=== PATIENT | female | born 1985 | race African-American/Black ===

== ENCOUNTER 2018-01-18 23:00 | Inpatient (IN) | payer MEDICAID ==
[~2018-01-18] VITALS: Ht 160 cm; Wt 67.7 kg
[~2018-01-18 23:00] MED LIST: ALBUPOW26; CARI250T; VICODIN
[2018-01-18] MEDS ORDERED: LORA-654 PO (23:06)
[2018-01-18] MEDS ORDERED: SODIUM CHLORIDE 0.9% 1,000 ML IVB ONE (23:12)
[2018-01-18] MEDS ORDERED: LORazepam 2MG/ML-1ML VIAL ONE (23:20)
[2018-01-18] MEDS ORDERED: diphenhdrAMINE HCL 50 MG/1 ML VL ONE (23:20)
[2018-01-18] MEDS ORDERED: HALOPERIDOL LACTATE 5 MG/ML INJ VIAL ONE (23:20)
[2018-01-18 23:45] LABS: Eosinophils # (auto) 0 uL; Lymphocytes # (auto) 1.6 uL; Monocytes % (auto) 7.9 % (0.0-12.0); White Blood Cell 12.4 10^3/uL (4.4-10.8)
[2018-01-18 23:46] LABS: Basophils # (auto) 0.1 uL; Basophils % (auto) 0.5 % (0.0-2.0); Eosinophils % (auto) 0.4 % (0.0-7.0); Hematocrit 40.4 % (36.0-46.0); Lymphocytes % (auto) 13.2 % (10.0-50.0); Mean Corpuscular Hemoglobin 25.5 pg (28.0-32.0); Mean Corpuscular Hgb Conc. 32.2 g/dL (32.0-36.0); Mean Corpuscular Volume 79.2 fL (80.0-100.0); Neutrophils # (auto) 9.7 uL; Nucleated Red Blood Cells % 0.1 %; Platelet Count (auto) 223 10^3/uL (140-450); Red Cell Distribution Width 14.7 % (11.8-14.3)
[2018-01-19 00:01] LABS: Partial Thromboplastin Time 21.7 sec (22.64-33.71); Prothrombin Time 10.9 sec (9.37-12.3)
[2018-01-19 00:08] LABS: Alanine Aminotransferase 39 U/L (13-56); Albumin 4.6 g/dL (3.4-5.0); Alkaline Phosphatase 58 U/L (45-117); Anion Gap 15 (5-15); Aspartate Aminotransferase 94 U/L (15-37); BUN/Creatinine Ratio 21.6; Bilirubin, Total 1.6 mg/dL (0.2-1.0); Blood Alcohol < 3.0 mg/dL (0-5); Blood Urea Nitrogen 33 mg/dL (7-18); Calcium 9.5 mg/dL (8.5-10.1); Carbon Dioxide 15 mmol/L (21-32); Chloride 104 mmol/L (98-107); GFR African American 53 mL/min; GFR Non-African American 44 mL/min; Glucose 82 mg/dL (74-106); Magnesium 3.9 mg/dL (1.6-2.6); Potassium 4.4 mmol/L (3.5-5.1); Sodium 134 mmol/L (136-145); Total Protein 8.9 g/dL (6.4-8.2)
[2018-01-19] MEDS ORDERED: HALOPERIDOL LACTATE 5 MG/ML INJ VIAL IM ONE (01:00)
[2018-01-19] MEDS ORDERED: LORazepam 2MG/ML-1ML VIAL IV ONE (01:00)
[2018-01-19] MEDS ORDERED: diphenhdrAMINE HCL 50 MG/1 ML VL IV ONE (01:00)
[2018-01-19 01:08] LABS: Urine Bacteria FEW /hpf (None Seen); Urine Blood 2+ /uL (Negative); Urine Hyaline Cast FEW /lpf (0 - 2); Urine Mucus FEW (None Seen); Urine Specific Gravity 1.025 (1.001-1.035); Urine WBC 2 /hpf (0 - 5)
[2018-01-19 01:19] LABS: Alcohol, Urine < 3.0 mg/dL (0-5); Amphetamine Screen, Urine POSITIVE (NEGATIVE); Barbiturate Scree,Urine NEGATIVE (NEGATIVE); Benzodiazephine Screen, Urine NEGATIVE (NEGATIVE); Cannabinoid Screen, Urine NEGATIVE (NEGATIVE); Cocaine Screen, Urine NEGATIVE (NEGATIVE); Opiate Scree,Urine NEGATIVE (NEGATIVE); Phencyclidine Screen, Urine NEGATIVE (NEGATIVE)
[2018-01-19 07:33] LABS: Albumin 4.4 g/dL (3.4-5.0); Calcium 8.7 mg/dL (8.5-10.1); Potassium 4.1 mmol/L (3.5-5.1)
[2018-01-19 07:36] LABS: BUN/Creatinine Ratio 25.2
[2018-01-19] MEDS ORDERED: ONDANSETRON HCL 4 MG/2 ML VIAL IV PRN (07:45)
[2018-01-19 07:47] LABS: Bilirubin, Total 1.5 mg/dL (0.2-1.0); Total Protein 8.5 g/dL (6.4-8.2)
[2018-01-19 09:12] LABS: Basophils # (auto) 0 uL; Eosinophils # (auto) 0.1 uL; Lymphocytes # (auto) 2.1 uL
[2018-01-19 09:13] LABS: Basophils % (auto) 0.3 % (0.0-2.0); Eosinophils % (auto) 0.6 % (0.0-7.0); Hematocrit 39.9 % (36.0-46.0); Hemoglobin 12.9 g/dL (12.2-16.2); Lymphocytes % (auto) 15.1 % (10.0-50.0); Mean Corpuscular Hemoglobin 25.6 pg (28.0-32.0); Mean Corpuscular Hgb Conc. 32.3 g/dL (32.0-36.0); Monocytes % (auto) 7.4 % (0.0-12.0); Neutrophils # (auto) 10.6 uL; Neutrophils % (auto) 76.6 % (37.0-80.0); Nucleated Red Blood Cells % 0.3 %; Platelet Count (auto) 238 10^3/uL (140-450); Red Blood Cells 5.04 10^6/uL (4.0-5.20); Red Cell Distribution Width 15.1 % (11.8-14.3); White Blood Cell 13.8 10^3/uL (4.4-10.8)
[2018-01-19 10:01] VITALS: BP 103/77
[2018-01-19] MEDS: D5W/SOD CHL 0.45% 1,000 ML IV SCH ×2 (11:18→20:45)
[2018-01-19 11:21] LABS: Basophils # (auto) 0 uL; Eosinophils # (auto) 0.1 uL; Eosinophils % (auto) 0.9 % (0.0-7.0); Hemoglobin 12.5 g/dL (12.2-16.2); Lymphocytes # (auto) 1.3 uL; Mean Corpuscular Volume 77.5 fL (80.0-100.0)
[2018-01-19 11:23] LABS: Basophils % (auto) 0.1 % (0.0-2.0); Hematocrit 37.7 % (36.0-46.0); Lymphocytes % (auto) 12.1 % (10.0-50.0); Mean Corpuscular Hemoglobin 25.6 pg (28.0-32.0); Mean Corpuscular Hgb Conc. 33.1 g/dL (32.0-36.0); Monocytes # (auto) 0.7 uL; Monocytes % (auto) 6.1 % (0.0-12.0); Neutrophils # (auto) 8.8 uL; Neutrophils % (auto) 80.8 % (37.0-80.0); Nucleated Red Blood Cells % 0.1 %; Platelet Count (auto) 238 10^3/uL (140-450); Red Blood Cells 4.87 10^6/uL (4.0-5.20); White Blood Cell 10.8 10^3/uL (4.4-10.8)
[2018-01-19 11:39] LABS: Albumin 4.2 g/dL (3.4-5.0); Bilirubin, Total 1.4 mg/dL (0.2-1.0); Calcium 8.8 mg/dL (8.5-10.1); Potassium 4.1 mmol/L (3.5-5.1); Total Protein 8.5 g/dL (6.4-8.2)
[2018-01-19] MEDS: THIAMINE INJ 100 MG, MULTIPLE VITAMIN 10 ML, FOLIC ACID 1 MG, MAGNESIUM SULF SDV 50% 8 ... IV SCH ×5 (12:03)
[2018-01-19 12:30] VITALS: BP 108/73
[2018-01-19 15:00] VITALS: BP 112/71
[2018-01-19] MEDS: LORazepam 2MG/ML-1ML VIAL IV PRN (17:55)
[2018-01-19 20:00] VITALS: BP 112/64
[2018-01-19] MEDS: ACETAMINOPHEN 500 MG TAB PO PRN (20:19)
[2018-01-20] MEDS: D5W/SOD CHL 0.45% 1,000 ML IV SCH ×2 (03:56→16:45)
[2018-01-20] MEDS: LORazepam 2MG/ML-1ML VIAL IV PRN ×4 (03:56→21:52)
[2018-01-20] MEDS: ACETAMINOPHEN 500 MG TAB PO PRN ×2 (04:23→10:23)
[2018-01-20 09:00] VITALS: BP 86/51
[2018-01-20 10:31] VITALS: BP 89/49
[2018-01-20 13:00] VITALS: BP 93/52
[2018-01-20] MEDS: THIAMINE INJ 100 MG, MULTIPLE VITAMIN 10 ML, FOLIC ACID 1 MG, MAGNESIUM SULF SDV 50% 8 ... IV SCH ×5 (13:46)
[2018-01-20] MEDS: HYDROcodone-ACET 5/325MG TAB PO PRN (14:41)
[2018-01-20 16:45] VITALS: BP 98/67
[2018-01-20 20:00] VITALS: BP 111/72
[2018-01-20 22:00] VITALS: BP 111/77
[2018-01-21] MEDS: D5W/SOD CHL 0.45% 1,000 ML IV SCH (03:11)
[2018-01-21 05:00] VITALS: BP 101/69
[2018-01-21] MEDS: LORazepam 2MG/ML-1ML VIAL IV PRN (05:46)
[2018-01-21 07:46] LABS: Albumin 3.2 g/dL (3.4-5.0); BUN/Creatinine Ratio 23.1; Calcium 8.6 mg/dL (8.5-10.1); Potassium 4.1 mmol/L (3.5-5.1)
[2018-01-21 07:59] LABS: Bilirubin, Total 0.3 mg/dL (0.2-1.0); Total Protein 6.7 g/dL (6.4-8.2)
[2018-01-21 08:00] VITALS: BP 103/68
[2018-01-21 09:00] VITALS: BP 103/68
[2018-01-21 09:14] LABS: Basophils # (auto) 0 uL; Eosinophils # (auto) 0.2 uL; Hematocrit 35.2 % (36.0-46.0); Neutrophils # (auto) 2.6 uL; Red Blood Cells 4.53 10^6/uL (4.0-5.20); Red Cell Distribution Width 15.2 % (11.8-14.3)
[2018-01-21 09:17] LABS: Basophils % (auto) 0.4 % (0.0-2.0); Eosinophils % (auto) 4.5 % (0.0-7.0); Hemoglobin 11.4 g/dL (12.2-16.2); Lymphocytes % (auto) 38.1 % (10.0-50.0); Mean Corpuscular Hemoglobin 25.2 pg (28.0-32.0); Mean Corpuscular Hgb Conc. 32.5 g/dL (32.0-36.0); Mean Corpuscular Volume 77.6 fL (80.0-100.0); Monocytes # (auto) 0.5 uL; Monocytes % (auto) 8.8 % (0.0-12.0); Neutrophils % (auto) 48.2 % (37.0-80.0); Nucleated Red Blood Cells % 0.1 %; Platelet Count (auto) 234 10^3/uL (140-450); White Blood Cell 5.4 10^3/uL (4.4-10.8)
[2018-01-21] MEDS: HYDROcodone-ACET 5/325MG TAB PO PRN (09:42)
[2018-01-21 13:00] VITALS: BP 125/75
[2018-01-21] MEDS: THIAMINE INJ 100 MG, MULTIPLE VITAMIN 10 ML, FOLIC ACID 1 MG, MAGNESIUM SULF SDV 50% 8 ... IV SCH ×5 (13:46)
[2018-01-21 16:58] VITALS: BP 125/75
[2018-01-21 17:00] VITALS: BP 121/78
== END 2018-01-21 19:00 | disposition home or self-care (01) | DRG 469 ==
LOC: EDBD 23:00 → ER 23:04 → MERGE 23:05 → EDBD 23:05 → TELE 23:05 → TELE-WESTW 01-19 09:31
PROVIDERS: ADMIT Nurse Practitioner Family; ATTEND Internal Medicine
DX: N17.9 Acute kidney failure, unspecified (principal); G92 Toxic encephalopathy; E44.0 Moderate protein-calorie malnutrition; R65.10 Systemic inflammatory response syndrome (SIRS) of non-infectious origin without acute organ dysfunction; E86.0 Dehydration; F15.10 Other stimulant abuse, uncomplicated; F31.9 Bipolar disorder, unspecified; T43.625A Adverse effect of amphetamines, initial encounter; F43.10 Post-traumatic stress disorder, unspecified; K02.9 Dental caries, unspecified; F17.210 Nicotine dependence, cigarettes, uncomplicated; R74.8 Abnormal levels of other serum enzymes; G47.00 Insomnia, unspecified; Z88.6 Allergy status to analgesic agent; Z68.26 Body mass index [BMI] 26.0-26.9, adult; Z79.899 Other long term (current) drug therapy; Y92.89 Other specified places as the place of occurrence of the external cause
CPT/HCPCS: 36415; 51702; 70450; 70486; 71045; 80053; 80307; 80320; 81001; 82962; 83735; 84484; 84702; 85025; 85610; 85730; 93005; 93306; 94761; 96361; 96372; 96374; 96375; A4565